=== PATIENT | female | born 1970 | race Hispanic/Latino ===

== ENCOUNTER 2017-04-13 01:52 | Emergency (ER) | payer OTHER ==
--- NOTE | 2017-04-14 14:00 | CARD ---
APPROVED REPORT EKG Measurement Heart [id number] <Conclusion> Normal sinus rhythm Normal ECG
== END 2017-04-13 06:00 | disposition home or self-care (01) ==
LOC: H.ER 01:52 → H.EDERROR 01:52
DX: J20.9 Acute bronchitis, unspecified (principal)

== ENCOUNTER 2017-07-08 13:29 | Observation (INO) | payer OTHER ==
[2017-07-08 15:01] VITALS: RESP 20; TEMP 98.6; O2SAT 98
[2017-07-08] MEDS ORDERED: Sodium Chloride 0.9% 1,000 ML IV STA (15:46)
--- NOTE | 2017-07-08 15:55 | ED PDOC ---
HPI: Abdomen Time Seen by Provider: 07/08/17 15:33 Chief Complaint (Nursing): Abdominal Pain Chief Complaint (Provider): Pelvic pain and nasal congestion History Per: Patient History/Exam Limitations: no limitations Onset/Duration Of Symptoms: Days (x 2-3 weeks) Current Symptoms Are (Timing): Still Present Additional Complaint(s): Marcia is a 47 y/o female who presents to the ED complaining of nasal congestion , ongoing for the past 2-3 weeks. Also complains of nausea, pelvic pain, and vaginal bleeding which occurred last night, leading patient to believe she may have been . Patient is sexually active and last had intercourse 2 weeks ago. LMP was 9 months ago. She now believes she is not . Denies chest pain, shortness of breath, headaches, and back pain. No numbness, tingles. No dysuria. PMD: Unknown Past Medical History Reviewed: Historical Data, Nursing Documentation, Vital Signs Vital Signs: Last Vital Signs Temp 98.6 F 07/08/17 14:57 Pulse 78 07/08/17 14:57 Resp 20 07/08/17 14:57 BP 146/93 H 07/08/17 14:57 Pulse Ox 98 07/08/17 16:27 - Medical History PMH: Hypothyroidism - Surgical History Surgical History: No Surg Hx - Family History Family History: States: Unknown Family Hx - Living Arrangements Living Arrangements: With Family - Social History Current smoker - smoking cessation education provided: No Alcohol: None Drugs: Denies - Allergies Allergies/Adverse Reactions: Allergies Allergy/AdvReac Type Severity Reaction Status Date / Time No Known Allergies Allergy Verified 07/08/17 15:44 Review of Systems ROS Statement: Except As Marked, All Systems Reviewed And Found Negative ENT: Positive for: Nose Congestion Cardiovascular: Negative for: Chest Pain Respiratory: Negative for: Shortness of Breath Gastrointestinal: Positive for: Nausea Genitourinary Female: Positive for: Vaginal Bleeding, Pelvic Pain Musculoskeletal: Negative for: Back Pain Neurological: Negative for: Headache Physical Exam - Reviewed Nursing Documentation Reviewed: Yes Vital Signs Reviewed: Yes - Physical Exam Appears: Positive for: Non-toxic, No Acute Distress Head Exam: Positive for: ATRAUMATIC, NORMAL INSPECTION, NORMOCEPHALIC Skin: Positive for: Normal Color, Warm, Dry Eye Exam: Positive for: EOMI, Normal appearance, PERRL ENT: Positive for: Normal ENT Inspection, Nasal Congestion. Negative for: Pharyngeal Erythema, Tonsillar Exudate Neck: Positive for: Normal, Painless ROM, Supple Cardiovascular/Chest: Positive for: Regular Rate, Rhythm. Negative for: Murmur Respiratory: Positive for: Normal Breath Sounds. Negative for: Accessory Muscle Use, Respiratory Distress Gastrointestinal/Abdominal: Positive for: Soft, Tenderness (mild tenderness across lower pelvis) Back: Positive for: Normal Inspection. Negative for: Vertebral Tenderness Extremity: Positive for: Normal ROM. Negative for: Pedal Edema, Deformity Neurologic/Psych: Positive for: Alert, Oriented - Laboratory Results Result Diagrams: 07/08/17 16:43 07/08/17 16:43 Interpretation Of Abn Labs: no acute - ECG O2 Sat by Pulse Oximetry: 98 (RA) Pulse Ox Interpretation: Normal - CT Scan/US US Other Rad Studies (CT/US): Radiology Report Reviewed Other Rad Interpretation: Uterine cyst; ovarian cyst - Progress ED Course And Treament: 1754: Stable. AAOx3. Pain free. Tolerated PO. Fu with pcp. Not suicidal or homicidal. States she thought she was preg as her abd was bigger. States it was a mistake. Has capacity to make decisions. Medical Decision Making Medical Decision Making: Time: 15:45 Initial Plan: --CBC --ED Urine --ED urine dipstick --CMP --Beta-HCG --NS IV 1000 ml at 1000 mls/hr --Patient is to be admitted to ED-Observation for pelvic pain --Pending US Pelvis/Transvag Scribe Attestation: Documented by Swetha Krishnamurthy, acting as a scribe for Horacio Vega MD Provider Scribe Attestation: All medical record entries made by the Scribe were at my direction and personally dictated by me. I have reviewed the chart and agree that the record accurately reflects my personal performance of the history, physical exam, medical decision making, and the department course for this patient. I have also personally directed, reviewed, and agree with the discharge instructions and disposition. ED OBSERVATION Discharge: Yes Date of observation admission: 07/08/17 Time of observation admission: 15:45 - Observation admission statement Patient is being placed in observation because:: Pelvic pain - Goals of Observation Goals of observation are:: vaginal bleeding eval - Progress Note Progress Note: 07/08/17 Time: 15:45 --Patient is resting comfortably. Vital signs stable. Disposition - Clinical Impression Clinical Impression: Ovarian cyst, URI (upper respiratory infection) - Patient ED Disposition Is Patient to be Admitted: No Counseled Patient/Family Regarding: Studies Performed, Diagnosis, Need For Followup - Disposition Referrals: [facility] [Outside] - 07/10/17 Disposition: Routine/Home Disposition Time: 18:01 Condition: STABLE Additional Instructions: Return if not better in 3 days. Instructions: Upper Respiratory Infection (ED), Ovarian Cyst (ED) Forms: [employer] (Thai)
[2017-07-08 16:48] LABS: BASO # 0.1 K/uL (0.0-0.2); BASO % 0.5 % (0.0-2.0); EOS # 0.1 K/uL (0.0-0.7); EOS % 0.6 % (0.0-4.0); HEMOGLOBIN 13.6 g/dL (12.0-16.0); LYMPH # 1.1 K/uL (1.0-4.3); MEAN CELL VOLUME 90.9 fl (81.0-99.0); MEAN CORPUSCULAR HEMOGLOBIN 30.1 pg (27.0-31.0); MEAN CORPUSCULAR HGB CONC 33.1 g/dL (33.0-37.0); MEAN PLATELET VOLUME 10.1 fl (7.2-11.7); MONO # 0.4 K/uL (0.0-0.8); MONO % 3.6 % (0.0-10.0); NEUT # 9.7 K/uL (1.8-7.0); NEUT % 85.3 % (50.0-75.0); RBC 4.52 Mil/uL (3.80-5.20); RED CELL DISTRIBUTION WIDTH 13.6 % (11.5-14.5); WHITE BLOOD COUNT 11.3 K/uL (4.8-10.8)
[2017-07-08 16:58] LABS: ALB/GLOB RATIO 1.5 (1.0-2.1); ALBUMIN 4.8 g/dL (3.5-5.0); ALT/SGPT 32 U/L (9-52); AST/SGOT 21 U/L (14-36); BLOOD UREA NITROGEN 17 mg/dl (7-17); CALCIUM 9.8 mg/dL (8.4-10.2); GFR AFRICAN-AMERICAN > 60; GFR NON-AFRICAN AMERICAN > 60
--- NOTE | 2017-07-08 19:54 | OBHP ---
Datetime: 07/08/2017 15:35 IP Adm Impression: No Active Labor IP Adm Impression Other: No IUP IP Admit Plan: Discharge home IP Admit Plan Other: sent to ED Admit Comment, IP Provider: A 47 y/o F , DAVID 06/07/2017, comes to the [facility] stating she is 9 amauri hs and LMP 9 month ago, c/o Dizziness, Nausea, clogged sinuses and Heavy bleeding per vagina and decreased movement since yesterday. -as per pt, OB doctor was seen before 2 weeks and gets PN care at [facility] -ROS: as per HPI -PMH: Hypothyroidism -PSH: c/s -All: NKDA -meds: Levothyroxine and PNV SH: no alcohol or smoking FH: none OBGYN: LMP 9 mts ago, one c/s VS: 149/92, HR 87 No FHR detected U/S :No IUP was visualized A: A 47 y/o F , No IUP by bedside U/S. P: Transfer pt to medical ER case discussed with Dr. Bryan -- Mabel Guerrier, PGY-1 obh addendum: pt seen _ exmined w/ dr guerrier. agree with above assessment and plan with following clarifications. obh hx: cd x1 sp ab x1 I: No evidence of abd IUP by bedside Perimenopausal Hypothyr Nausea Sinus P: pt advised no iup visualized by us. advised she would be eval for possible early iup andmedical c/o in ED Pelvic Type - PN: Not Done Extremities - PN: Normal Abdomen - PN: Normal Back - PN: Normal Lungs - PN: Normal Heart - PN: Abnormal Neurologic - PN: Normal HEENT - PN: Normal General - PN: Normal Comments, ACOG Physical Exam: nongravid uterus Vital Signs Provider: Reviewed IP Chief Complaint: Vaginal bleeding Genitourinary Exam: Abnormal
--- NOTE | 2017-07-08 20:05 | OBADHP ---
Datetime: 07/08/2017 16:53 Admit Comment, IP Provider: this is an erro pt was not admitted Datetime: 07/08/2017 15:35 IP Adm Impression Other: No IUP IP Admit Plan Other: sent to ED Pelvic Type - PN: Not Done Extremities - PN: Normal Abdomen - PN: Normal Back - PN: Normal Lungs - PN: Normal Heart - PN: Abnormal Neurologic - PN: Normal HEENT - PN: Normal General - PN: Normal Comments, ACOG Physical Exam: nongravid uterus Vital Signs Provider: Reviewed IP Chief Complaint: Vaginal bleeding Genitourinary Exam: Abnormal IP Adm Impression: No Active Labor IP Admit Plan: Discharge home
[2017-07-08 22:22] VITALS: BP 156/93; PULSE 83
--- NOTE | 2017-07-09 07:59 | US ---
PROCEDURE: Pelvic ultrasound HISTORY: pelvic pain COMPARISON: TECHNIQUE: FINDINGS: The uterus is normal in size measuring 7.1 x 3.4 x 4.3 centimeters. The endometrium measures 2 millimeters. 3 millimeter cystic focus posterior to the endometrium. The right ovary measures 1.1 x 1.1 x 1.3 centimeters. Left ovary measures 2.2 x 1.4 x 3.1 centimeters and contains 1.6 centimeter follicle. IMPRESSION: 3 millimeter subendometrial cystic focus.
== END 2017-07-08 18:10 | disposition home or self-care (01) ==
LOC: H.EROB2 13:29 → H.EROBSV 15:46 → H.EROB2 18:10
PROVIDERS: ADMIT Emergency Medicine; ATTEND Emergency Medicine
DX: R10.2 Pelvic and perineal pain (principal); R09.81 Nasal congestion; E03.9 Hypothyroidism, unspecified; N83.209 Unspecified ovarian cyst, unspecified side; J06.9 Acute upper respiratory infection, unspecified